=== PATIENT | male | born 1985 | race Caucasian/White ===

== ENCOUNTER 2016-06-08 21:50 | Inpatient (IN) | payer SELFPAY ==
[~2016-06-08] VITALS: Ht 190.5 cm; Wt 150.3 kg
--- OUTSIDE RECORDS SUMMARY | 2016-06-08 21:53 | External Medical Summary Rpt ---
Author Author [employer] Organization [employer] Address Unknown Phone Unavailable Purpose Continuity of Care Document - through 2016
--- OUTSIDE RECORDS SUMMARY | 2016-06-08 21:53 | External Medical Summary Rpt ---
Demographics Preferred Language Swedish Marital Status Unknown Hindu Affiliation Unknown Race Unknown Ethnic Group Unknown Author Author , Organization [employer] Address Unknown Phone Unavailable Purpose Continuity of Care Document - through 2016 Immunization No patient found.
--- OUTSIDE RECORDS SUMMARY | 2016-06-08 21:53 | External Medical Summary Rpt ---
Demographics Preferred Language Pap[place]inean Marital Status Unknown Shinto Affiliation Unknown Race Unknown Ethnic Group Unknown Author Author , Organization [employer] Address Unknown Phone Unavailable Purpose Continuity of Care Document - through 2016
--- OUTSIDE RECORDS SUMMARY | 2016-06-08 21:53 | External Medical Summary Rpt ---
Demographics Preferred Language Tajik Marital Status Unknown Episcopal Affiliation Unknown Race Unknown Ethnic Group Unknown Author Author , Organization [employer] Address Unknown Phone Unavailable Purpose Continuity of Care Document - through 2016 Immunization No patient found.
--- OUTSIDE RECORDS SUMMARY | 2016-06-08 21:53 | External Medical Summary Rpt ---
Demographics Preferred Language Gibraltarian Marital Status Unknown Hinduism Affiliation Unknown Race Unknown Ethnic Group Unknown Author Author , Organization [employer] Address Unknown Phone Unavailable Purpose Continuity of Care Document - through 2016
[2016-06-08 21:55] VITALS: BP 147/91
[2016-06-08] MEDS ORDERED: METFORMIN1000 MG PO (22:03)
--- OUTSIDE RECORDS SUMMARY | 2016-06-08 22:14 | External Medical Summary Rpt ---
Demographics Preferred Language Unknown Marital Status Unknown Mandaeism Affiliation Unknown Race Unknown Ethnic Group Unknown Author Author [employer], [employer] Organization [employer] Address Unknown Phone Unavailable
--- OUTSIDE RECORDS SUMMARY | 2016-06-08 22:14 | External Medical Summary Rpt ---
Demographics Preferred Language Cambodian Marital Status Unknown Samaritan Affiliation Unknown Race Unknown Ethnic Group Unknown Author Author , Organization [employer] Address Unknown Phone Unavailable Purpose Continuity of Care Document - through 2016
--- OUTSIDE RECORDS SUMMARY | 2016-06-08 22:14 | External Medical Summary Rpt ---
Demographics Preferred Language Danish Marital Status Unknown Restoration Affiliation Unknown Race Unknown Ethnic Group Unknown Author Author , Organization [employer] Address Unknown Phone Unavailable Purpose Continuity of Care Document - through 2016
--- OUTSIDE RECORDS SUMMARY | 2016-06-08 22:14 | External Medical Summary Rpt ---
Demographics Preferred Language Sri Lankan Marital Status Unknown Confucianism Affiliation Unknown Race Unknown Ethnic Group Unknown Author Author , Organization [employer] Address Unknown Phone Unavailable Purpose Continuity of Care Document - through 2016 Immunization No patient found.
--- OUTSIDE RECORDS SUMMARY | 2016-06-08 22:14 | External Medical Summary Rpt ---
Demographics Preferred Language Georgian Marital Status Unknown Latter-Day Affiliation Unknown Race Unknown Ethnic Group Unknown Author Author , Organization [employer] Address Unknown Phone Unavailable Purpose Continuity of Care Document - through 2016 Immunization No patient found.
--- OUTSIDE RECORDS SUMMARY | 2016-06-08 22:14 | External Medical Summary Rpt ---
Demographics Preferred Language Unknown Marital Status Unknown Congregational Affiliation Unknown Race Unknown Ethnic Group Unknown Author Author [employer] Green, [employer] Organization [employer] Address Unknown Phone Unavailable
[2016-06-08 22:37] LABS: HEMOGLOBIN 16.8 g/dL (14.1-18.0); LYMPH % 5.2 % (10-50)
--- NOTE | 2016-06-08 22:40 | Emergency Room Report ---
History of Present Illness Time Seen by 2213 Presenting Problem in Triage Pt arrived:Walked Presenting Problem:PT RPTS HE THINKS HE GOT BIT BY A SNAKE APPROXIMATELY 3 HOURS AGO. PT RPTS HE WAS RIDING ON A 4 LOPEZ AND WAS WEARING JEANS WHEN HE FELT SOMETHING BITE HIS RIGHT INNER THIGH. PT RPTS CHILLS/DIZZINESS/NAUSEA SINCE ALLEGED BITE. PT WITH RED/HARD/WARM AREA TO RIGHT INNER THIGH. NO PUNCTURE ARORA NOTED TO RED AREA. 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 N Clinical Suspician of Infection? Y Mental Status: 1 - Regular (Normal Baseline) Sepsis Risk:Severe Sepsis Risk Have you (or family members/close friends) recently traveled outside the [place]? N If Yes, where/when: Have you had exposure to infectious disease within the past month? N TB? Other? Specify: Source patient, RN notes reviewed, family, old records Exam Limitations no limitations Comment wm who about 1900 was bitten by unk source and has swelling and reddness - rt thigh - and feels achey - no other rash and no distal from bite finding - he has hx of diabetes mellitus - Cardiac Chest Pain Chest pain indicative of cardiac No Timing/Duration this evening Severity moderate ALLERGIES Coded Allergies: No Known Allergies (06/08/16) Home Medications Reported Medications METFORMIN HCL (Metformin) 1,000 MG PO BID History Medical History General CAD? No Angina: No [place]: No Hypertension? No Hyperlipidemia? No CHF? No DVT? No PE? No COPD? No Asthma? No Anemia? No GERD? No Gastric ulcers? No GI Bleed? No Hernia? No Thyroid Problems? No Hypothyroidism? No CVA? No Seizures? No Diabetes? Yes Insulin Dependent: No Insulin Pump: No Home FSBS? No Renal Insuffiency? No End Stage Renal Disease? No UTI? No Stones? No BPH? No GB Disease: No Nephritic Syndrome? No Asplenia? No Hepatitis? No Sickle Cell Disease? No Arthritis? No Migraines? No Cataracts? No Glaucoma? No MRSA? No HIV? No TB? No Anxiety? No Depression? No Cancer? No More? No Immunization Hx DT/Tetanus 1-4 Years Ago Surgical Hx Previous Surgery?N Social History Smoking Hx Smoker: Never Smoker Tobacco: No Alcohol Alcohol: Yes Drugs none Review of Systems All Other Systems Reviewed and Negative Constitutional see HPI, fever, other Eyes denies drainage ENT denies: ear pain, epistaxis, throat pain. Respiratory denies cough, denies shortness of breath, denies wheezing Cardiovascular denies chest pain, denies syncope Gastrointestinal denies abdominal pain, denies diarrhea, denies vomiting Genitourinary denies: dysuria, frequency, hesitancy, hematuria. Musculoskeletal denies back pain, denies joint pain, denies joint swelling, denies neck pain Skin see HPI, rash Psychiatric/Neurological denies headache, denies seizure Physical Exam Vital Signs Vital Signs Date Time Temp Pulse Resp B/P Pulse O2 O2 Flow FiO2 Ox Delivery Rate 06/08 2338 100.6 121 18 125/59 94 06/08 2229 111 20 131/72 95 06/08 2155 103.1 136 24 147/91 97 - WBC >12,000 or <4,000 or 10% bands? 2 or more SIRS Criteria Met? B/P:125/59 MAP:109 Creatinine >2.0? UA output<0.5ml/kg/hr for 2 hrs? Platelet count >100,000? Lactate >2.0mmol/1? INR >1.2 or PTT > than 60 sec? Evidence of Organ Dysfunction? Provider documented clinical suspician of infection? Y Sepsis Criteria Count: 3 Sepsis Risk: Severe Sepsis Risk General Appearance no apparent distress Eye Exam - bilateral eye PERRL, bilateral eye EOMI Ear, Nose, Throat normal ENT inspection Neck supple Respiratory Status No: respiratory distress. 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 No Results/Orders Laboratory Tests 06/08/162219: Lactic Acid 2.1 H, ESR 9 05/03/17 2220: Sodium 136, Potassium 4.5, Chloride 100, Carbon Dioxide 26, BUN 12, Creatinine 1.2, Estimated Creat Clear 204 H, Estimated GFR (MDRD) 70, Glucose 165 H, Calcium 9.2, Total Bilirubin 0.5, AST 16, ALT 35, Alkaline Phosphatase 83, Total Protein 7.7, Albumin 3.8, Globulin 3.9 H, Albumin/Globulin Ratio 1.0 L, WBC 20.1 *H, RBC 5.52, Hgb 16.8, Hct 49.8, MCV 90.2, RDW 13.9, Plt Count 250, MPV 6.7 L, Gran % 89.4 H, Gran # 18.0 H, Total Counted 100, Lymphocytes % 5.2 L, Monocytes % 4.4, Eosinophils % 0.7, Basophils % 0.2, Neutrophils 91 H, Lymphocytes (Manual) 5 L, Lymphocytes # 1.0, Monocytes (Manual) 3, Monocytes # 0.9, Eosinophils # 0.2, Basophils # 0.1, Basophils # (Manual) 1, Platelet Estimate NORMAL, Anisocytosis 1+, PUBS MCHC 33.7, MCH 30.4, Urine Color YELLOW, Urine Appearance CLEAR, Urine pH 6.0, Ur Specific [place] 1.025, Urine Protein TRACE H, Urine Ketones NEGATIVE, Urine Blood 3+ H, Urine Nitrate NEGATIVE, Urine Bilirubin NEGATIVE, Urine Urobilinogen 0.2, Ur Leukocyte Esterase NEGATIVE , Urine RBC 5-10, Urine WBC 3-5, Ur Squamous Epith Cells 3-5, Urine Bacteria 1+, Urine Mucus 1+, Urine Glucose NEGATIVE Current Medication Orders Sig/Miguel Start time Last Medication Dose Route Stop Time Status Admin Acetaminophen 1,000 MG ONCE ONE 06/08 2345 DC 06/08 PO 06/08 2346 2337 Acetaminophen 0 .STK-MED ONE 06/08 2336 DC PO Sodium Chloride 10 ML PRN PRN 06/08 223 AC IV 06/09 2229 Orders Procedure Date/time Status Decision to admit 06/08 2358 Active LACTIC ACID FOLLOW UP 06/08 225 Active SED RATE 06/08 224 Complete C-REACTIVE PROTEIN 06/08 224 Complete IV SALINE LOCK 06/08 2229 Active CULTURE, BLOOD 06/08 2229 Active URINALYSIS/COMPLETE 06/08 2229 Complete LACTIC ACID 06/08 2229 Complete CBC WITH AUTO DIFF 06/08 2229 Complete CHEM 12 PROFILE 06/08 2229 Complete DIFFERENTIAL-WBC 06/09 2219 Complete Departure Departure Time of Disposition 0005 Disposition Still a Patient Clinical Impression Primary Impression: Cellulitis Qualifiers: Site of cellulitis: extremity Site of cellulitis of extremity: lower extremity Laterality: right Qualified Code: L03.115 - Cellulitis of right lower limb Condition STABLE Referrals Marco Delcid MD discussed with dr delcid ED Critical Care Critical Care No at 0026
[2016-06-08 22:44] LABS: URINE BILIRUBIN - DIPSTICK NEGATIVE (NEG); URINE BLOOD 3+ (NEG)
[2016-06-08 23:17] LABS: NEUTROPHILS 91 % (42-76)
[2016-06-09] VITALS (7 sets, daily range): BP systolic 120–166; BP diastolic 70–86
--- OUTSIDE RECORDS SUMMARY | 2016-06-09 00:04 | External Medical Summary Rpt ---
Demographics Preferred Language Belarusian Marital Status Unknown Mormon Affiliation Unknown Race Unknown Ethnic Group Unknown Author Author , Organization [employer] Address Unknown Phone Unavailable Purpose Continuity of Care Document - through 2016 Immunization No patient found.
--- OUTSIDE RECORDS SUMMARY | 2016-06-09 00:04 | External Medical Summary Rpt ---
Demographics Preferred Language Chinese Marital Status Unknown Yarsani Affiliation Unknown Race Unknown Ethnic Group Unknown Author Author , Organization [employer] Address Unknown Phone Unavailable Purpose Continuity of Care Document - through 2016 Immunization No patient found.
[2016-06-09 07:34] LABS: LYMPH # 0.8 K/mm3 (0.7-4.5); LYMPH % 5.6 % (10-50)
--- NOTE | 2016-06-09 08:38 | HISTORY AND PHYSICAL REPORT ---
History and Physical ([facility]) Date of admission: 06/09/16 Chief complaint: Bite on leg with pain and swelling History: History of Present Illness: Mr. Randle is a 30-year-old male who was on his 4 robert yesterday getting ready to mow his yard when he felt something bite him on the RIGHT leg. He is unsure what it was but felt like it was a snake due to 2 bite marcus that he saw very close together. He states this occurred at approximately 7 PM and over the next few hours he began to get nauseated, he broke out into cold sweats, he began aching all over, and he started vomiting. He presented to the emergency room around 10 PM last night. He was admitted with cellulitis and started on vancomycin. He states he has vomited off and on all night. He still has been running a fever and having cold chills. He is very nauseated. He states the pain at the bite site is actually getting worse. His medical history is significant only for type 1 diabetes and HTN. He states he takes nothing for his diabetes and controls it with diet. He does not have a family physician. Past Medical History: Medical History: CAD? No Angina: No [place]: No Hypertension? Yes Hyperlipidemia? No CHF? No DVT? No PE? No COPD? No Asthma? No Anemia? No GERD? No Gastric ulcers? No GI Bleed? No Hernia? No Thyroid Problems? No Hypothyroidism? No CVA? No Seizures? No Diabetes? Yes Insulin Dependent: No Insulin Pump: No Home FSBS? No Renal Insuffiency? No UTI? No Stones? No BPH? No GB Disease: No Nephritic Syndrome? No Asplenia? No Hepatitis? No Sickle Cell Disease? No Arthritis? No Migraines? No Cataracts? No Glaucoma? No MRSA? No HIV? No TB? No Anxiety? No Depression? No Cancer? No More? No Additional hx: 1. Right eye injury - partially blind Surgical history: Previous Surgery?N Medications: Reported Medications No Known Home Medications Allergies: Coded Allergies: No Known Allergies (06/08/16) Family History: Family history: Postive for: CAD, DM, HTN, hyperlipidemia, stroke. Social History: Smoking Hx Tobacco: No Smoker: Never Smoker Type: N/A Packs/day: N/A Are you exposed to second hand No Alcohol: Alcohol: Yes How much do you drink Less Than One Drink A Day For how long 1-2 Years When was your last drink 12-24 Hours Ago Comment PT DRINKS EVERY FEW DAYS FOR PAIN Hx of Drug Use: Drug Use? No Review of Systems: Constitutional Positive for: chills, fatigue, lethargy, malaise, weak. ENT No: nasal congestion, sore throat. Cardiovascular No: chest pain, edema, palpitations. Respiratory Positive for: shortness of air. No: productive cough (sputum), wheezing. GI Positive for: abdominal pain, nausea, vomitting. No: diarrhea. (male) No: frequency, hematuria. Neurological Positive for: dizziness, headache, light headed, weakness. Musculoskeletal Positive for: joint pain (all over), myalgias. Physical Exam: Vital signs: 1ST Vital Signs Result Date Time Pulse Ox 97 06/08 2154 B/P 147/91 06/08 2154 Temp 103.1 06/08 2154 Pulse 136 06/08 2154 Resp 20 06/08 2154 O2 Delivery ROOM AIR 06/09 0136 Exam: General appearance: alert, awake, does not appear to feel well Eyes: right pupil fixed and dilated from previous injury, left pupil normal ENT: mucous membranes moist, nose normal, pharynx normal, tympanic membranes normal Neck: non-tender, full range of motion, supple Cardiovascular: regular sinus rhythm, tachycardic Respiratory: clear to auscultation ABD: non-distended, normal bowel sounds, no rebound, soft, no guarding, diffusely ttp Extremities: no peripheral edema Musculoskeletal: equal muscle strength, motor intact, sensation intact Skin: there is an area of irregular erythema on the right thigh surrounding two bite marcus, the area is hot to the touch and tender, there is no discharge 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, normal mood/affect, oriented, speech clear Lab data: Labs: Laboratory Tests 06/09/16 0625: Creatine Kinase 173, CK-MB (CK-2) Rel Index 0.3, CK and CKMB Interp 0.5, Troponin I < 0.02, WBC 14.1 H, RBC 5.01, Hgb 15.0, Hct 44.9, MCV 89.6, RDW 14.0 , Plt Count 218, MPV 7.0 L, Gran % 89.1 H, Gran # 12.6 H, Lymphocytes % 5.6 L, Monocytes % 5.0, Eosinophils % 0.1, Basophils % 0.2, Lymphocytes # 0.8, Monocytes # 0.7, Eosinophils # 0.0, Basophils # 0.0, PUBS MCHC 33.5, MCH 30.0 06/09/16 0235: Lactic Acid 1.9 06/09/16 0000: Hemoglobin A1c 7.5 H 06/08/16 2220: Lactic Acid 2.1 H, ESR 9 06/08/16 2220: Sodium 136, Potassium 4.5, Chloride 100, Carbon Dioxide 26, BUN 12, Creatinine 1.2, Estimated Creat Clear 204 H, Estimated GFR (MDRD) 70, Glucose 165 H, Calcium 9.2, Total Bilirubin 0.5, AST 16, ALT 35, Alkaline Phosphatase 83, Total Protein 7.7, Albumin 3.8, Globulin 3.9 H, Albumin/Globulin Ratio 1.0 L, WBC 20.1 *H, RBC 5.52, Hgb 16.8, Hct 49.8, MCV 90.2, RDW 13.9, Plt Count 250, MPV 6.7 L, Gran % 89.4 H, Gran # 18.0 H, Total Counted 100, Lymphocytes % 5.2 L, Monocytes % 4.4, Eosinophils % 0.7, Basophils % 0.2, Neutrophils 91 H, Lymphocytes (Manual) 5 L, Lymphocytes # 1.0, Monocytes (Manual) 3, Monocytes # 0.9, Eosinophils # 0.2, Basophils # 0.1, Basophils # (Manual) 1, Platelet Estimate NORMAL, Anisocytosis 1+, PUBS MCHC 33.7, MCH 30.4, Urine Color YELLOW, Urine Appearance CLEAR, Urine pH 6.0, Ur Specific [place] 1.025, Urine Protein TRACE H, Urine Ketones NEGATIVE, Urine Blood 3+ H, Urine Nitrate NEGATIVE, Urine Bilirubin NEGATIVE, Urine Urobilinogen 0.2, Ur Leukocyte Esterase NEGATIVE , Urine RBC 5-10, Urine WBC 3-5, Ur Squamous Epith Cells 3-5, Urine Bacteria 1+, Urine Mucus 1+, Urine Glucose NEGATIVE Microbiology 06/09 2219 BLOOD: Anaerobic Blood Culture - RECD 06/09 2219 BLOOD: Aerobic Blood Culture - RECD 06/09 2219 BLOOD: Anaerobic Blood Culture - RECD 05/03 2220 BLOOD: Aerobic Blood Culture - RECD Diagnosis(es): 1. Cellulitis 2. Bite 3. Type 1 diabetes 4. Vomiting 5. Myalgia Plan: The patient has been started on IV Vancomycin, tylenol, and zofran along with IVF's. Will start on motrin as well. Will await blood cx's. His WBC and fever have improved. (Amarilys Benton) Diagnosis(es): 1. Cellulitis 2. Bite 3. Vomiting 4. 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 (Marco Delcid MD) at 0838 at 0903
--- NOTE | 2016-06-09 09:53 | PHARMACY CLINIC NOTE ---
Patient Demographics Patient Demographics Admission date: 06/09/16 Date: 06/09/16 Time: 951 Allergies Coded Allergies: No Known Allergies (06/08/16) HEIGHT- FT: 6 IN: 3.00 K.311 VTE General Information Labs: Laboratory Tests 06/09 06/08 0625 2220 Hematology Hgb (14.1 - 18.0 g/dL) 15.0 16.8 Hct (42.0 - 52.0 %) 44.9 49.8 Plt Count (142 - 424 K/mm3) 218 250 Disclaimer The following section includes nursing documentation that has been pulled in for pharmacy review. Patient's VTE score: 1 Patient's VTE Risk: VERY LOW RISK Clinical trial participant? No VTE prophylaxis NQF [id number] VTE prophylaxis ordered? Yes Type of prophylaxis/treatment: CATRACHITO at 0952
--- NOTE | 2016-06-09 12:52 | CONSULT NOTE ---
Pharmacokinetic Consult Date of consult: 06/09/16 Time of consult: 1250 Referring provider: DR. GASPAR Reason for consult: VANCOMYCIN DOSING Allergies: Coded Allergies: No Known Allergies (06/08/16) Home Medications: Reported Medications No Known Home Medications Height (feet): 6 Height (inches): 3.00 Medical History: CAD? No Angina: No [place]: No Hypertension? Yes Hyperlipidemia? No CHF? No DVT? No PE? No COPD? No Asthma? No Anemia? No GERD? No Gastric ulcers? No GI Bleed? No Hernia? No Thyroid Problems? No Hypothyroidism? No CVA? No Seizures? No Diabetes? Yes Insulin Dependent: No Insulin Pump: No Home FSBS? No Renal Insuffiency? No UTI? No Stones? No BPH? No GB Disease: No Nephritic Syndrome? No Asplenia? No Hepatitis? No Sickle Cell Disease? No Arthritis? No Migraines? No Cataracts? No Glaucoma? No MRSA? No HIV? No TB? No Anxiety? No Depression? No Cancer? No More? No Additional hx: 1. Right eye injury - partially blind Labs: Laboratory Tests 06/09/16 0625: Creatine Kinase 173, CK-MB (CK-2) Rel Index 0.3, CK and CKMB Interp 0.5, Troponin I < 0.02, WBC 14.1 H, RBC 5.01, Hgb 15.0, Hct 44.9, MCV 89.6, RDW 14.0 , Plt Count 218, MPV 7.0 L, Gran % 89.1 H, Gran # 12.6 H, Lymphocytes % 5.6 L, Monocytes % 5.0, Eosinophils % 0.1, Basophils % 0.2, Lymphocytes # 0.8, Monocytes # 0.7, Eosinophils # 0.0, Basophils # 0.0, PUBS MCHC 33.5, MCH 30.0 06/09/16 0235: Lactic Acid 1.9 06/09/16 0000: Hemoglobin A1c 7.5 H 06/08/160: Lactic Acid 2.1 H, ESR 9 06/08/16 2220: Sodium 136, Potassium 4.5, Chloride 100, Carbon Dioxide 26, BUN 12, Creatinine 1.2, Estimated Creat Clear 204 H, Estimated GFR (MDRD) 70, Glucose 165 H, Calcium 9.2, Total Bilirubin 0.5, AST 16, ALT 35, Alkaline Phosphatase 83, Total Protein 7.7, Albumin 3.8, Globulin 3.9 H, Albumin/Globulin Ratio 1.0 L, WBC 20.1 *H, RBC 5.52, Hgb 16.8, Hct 49.8, MCV 90.2, RDW 13.9, Plt Count 250, MPV 6.7 L, Gran % 89.4 H, Gran # 18.0 H, Total Counted 100, Lymphocytes % 5.2 L, Monocytes % 4.4, Eosinophils % 0.7, Basophils % 0.2, Neutrophils 91 H, Lymphocytes (Manual) 5 L, Lymphocytes # 1.0, Monocytes (Manual) 3, Monocytes # 0.9, Eosinophils # 0.2, Basophils # 0.1, Basophils # (Manual) 1, Platelet Estimate NORMAL, Anisocytosis 1+, PUBS MCHC 33.7, MCH 30.4, Urine Color YELLOW, Urine Appearance CLEAR, Urine pH 6.0, Ur Specific [place] 1.025, Urine Protein TRACE H, Urine Ketones NEGATIVE, Urine Blood 3+ H, Urine Nitrate NEGATIVE, Urine Bilirubin NEGATIVE, Urine Urobilinogen 0.2, Ur Leukocyte Esterase NEGATIVE , Urine RBC 5-10, Urine WBC 3-5, Ur Squamous Epith Cells 3-5, Urine Bacteria 1+, Urine Mucus 1+, Urine Glucose NEGATIVE Microbiology 06/09 2219 BLOOD: Anaerobic Blood Culture - RECD 06/09 2219 BLOOD: Aerobic Blood Culture - RECD 06/09 2219 BLOOD: Anaerobic Blood Culture - RECD 06/09 2219 BLOOD: Aerobic Blood Culture - RECD Problem List: 1. Cellulitis Plan: BASED ON PATIENT FACTORS, RECOMMEND VANCOMYCIN 2500 MG IV ONCE, FOLLOWED BY VANCOMYCIN 2 GM IV Q8H. PHARMACY WILL FOLLOW DAILY AND ADJUST APPROPRIATE. at 1251
[2016-06-10 04:03] VITALS: BP 149/67
[2016-06-10 06:47] LABS: HEMOGLOBIN 15.1 g/dL (14.1-18.0); LYMPH # 1.6 K/mm3 (0.7-4.5); LYMPH % 15.4 % (10-50)
[2016-06-10 08:10] VITALS: BP 141/72
--- NOTE | 2016-06-10 08:11 | ACUTE CARE PROGRESS NOTE (QUA) ---
Progress Notes Subjective Date 06/10/16 Time 0730 Note Patient feels better; aches and chills stopped yesterday; cellulitis on thigh is not as hot but reddness does not seem any better. eating OK but has developed diarrhea; no nausea or vomiting; voiding qs; ambulating without pain WBC's are normal today Objective Findings Laboratory Tests 06/10/16 0620: Sodium 139, Potassium 4.4, Chloride 103, Carbon Dioxide 28, BUN 10, Creatinine 1.1, Estimated Creat Clear 205 H, Estimated GFR (MDRD) 78, Glucose 206 H, Calcium 8.8, WBC 10.4, RBC 4.94, Hgb 15.1, Hct 44.4, MCV 89.8, RDW 14.1, Plt Count 191, MPV 6.7 L, Gran % 73.7, Gran # 7.7, Lymphocytes % 15.4, Monocytes % 9.0, Eosinophils % 1.6, Basophils % 0.3, Lymphocytes # 1.6, Monocytes # 0.9, Eosinophils # 0.2, Basophils # 0.0, PUBS MCHC 34.0, MCH 30.5 Vital Signs Date Time Temp Pulse Resp B/P Pulse O2 O2 Flow FiO2 Ox Delivery Rate 06/10 0403 99.4 91 18 149/67 99 ROOM AIR 06/09 2130 98.2 87 18 158/70 96 06/09 1944 98.2 87 18 158/70 96 ROOM AIR 06/09 1630 99.9 98 18 166/86 96 ROOM AIR 06/09 0913 99.2 110 20 147/70 99 / 0830 98.6 99 20 142/82 98 ROOM AIR Current Medications Acetaminophen 0 .STK-MED ONE PO (DC) Ondansetron HCl 0 .STK-MED ONE .ROUTE (DC) Ibuprofen 0 .STK-MED ONE PO (DC) Acetaminophen 0 .STK-MED ONE PO (DC) Vancomycin HCl 2,000 MG Q8H IV Sodium Chloride 250 ML Vancomycin HCl 2,000 MG Q12 IV (DC) Sodium Chloride 250 ML Ibuprofen 600 MG Q6HP PRN PO Sodium Chloride 10 ML PRN PRN IV Acetaminophen 650 MG Q4HP PRN PO Ondansetron HCl 4 MG Q6HP PRN IV Oxycodone/Acetaminophen 1 EACH Q6HP PRN PO (DC) Sodium Chloride 1,000 ML .[id number] IV Miscellaneous Information 1 EACH CONSULT PHARMACY * (DC) Sodium Chloride 10 ML PRN PRN IV (DC) 06/09 1500 06/09 2300 06/10 0700 Intake Total 494 480 Output Total Balance 494 480 Intake, Oral 494 480 Output, Stool Last VS-Temp:99.4 B/P:149/67 Pulse:91 Resp:18 SaO2:99 ROOM AIR Last weight lbs:331 oz:6 K.311 Method:Bed Scales Exam General appearance: alert, active, no acute distress, well-developed, well- nourished Cardiovascular: regular rate & rhythm Respiratory: clear to auscultation (bilat anterior and posterior) ABD: non-distended, soft, no tenderness, no guarding Extremities: no peripheral edema, pedal pulses (present) Skin: right inner thigh with circular erythema with center; not as TTP; no drainage Assessment/Plan Problem List 1. Cellulitis 2. Bite 3. Vomiting 4. 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 Cellulitis 2. Bite 3. Vomiting 4. 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 (Marco Delcid MD) at 0811 at 0845
[2016-06-10 10:04] VITALS: BP 141/72
--- NOTE | 2016-06-10 10:25 | CONSULT NOTE ---
Pharmacokinetic Consult Date of consult: 06/10/16 Time of consult: 1024 Referring provider: DR. GASPAR Reason for consult: VANCOMYCIN TROUGH LEVEL Allergies: Coded Allergies: No Known Allergies (06/08/16) Home Medications: Reported Medications No Known Home Medications Height (feet): 6 Height (inches): 3.00 Medical History: CAD? No Angina: No ND: No Hypertension? Yes Hyperlipidemia? No CHF? No DVT? No PE? No COPD? No Asthma? No Anemia? No GERD? No Gastric ulcers? No GI Bleed? No Hernia? No Thyroid Problems? No Hypothyroidism? No CVA? No Seizures? No Diabetes? Yes Insulin Dependent: No Insulin Pump: No Home FSBS? No Renal Insuffiency? No UTI? No Stones? No BPH? No GB Disease: No Nephritic Syndrome? No Asplenia? No Hepatitis? No Sickle Cell Disease? No Arthritis? No Migraines? No Cataracts? No Glaucoma? No MRSA? No HIV? No TB? No Anxiety? No Depression? No Cancer? No More? No Additional hx: 1. Right eye injury - partially blind Labs: Laboratory Tests 06/10/16 0830: Vancomycin Trough 12.5 H 06/10/16 0620: Sodium 139, Potassium 4.4, Chloride 103, Carbon Dioxide 28, BUN 10, Creatinine 1.1, Estimated Creat Clear 205 H, Estimated GFR (MDRD) 78, Glucose 206 H, Calcium 8.8, WBC 10.4, RBC 4.94, Hgb 15.1, Hct 44.4, MCV 89.8, RDW 14.1, Plt Count 191, MPV 6.7 L, Gran % 73.7, Gran # 7.7, Lymphocytes % 15.4, Monocytes % 9.0, Eosinophils % 1.6, Basophils % 0.3, Lymphocytes # 1.6, Monocytes # 0.9, Eosinophils # 0.2, Basophils # 0.0, PUBS MCHC 34.0, MCH 30.5 Problem List: 1. Cellulitis Plan: BASED ON VANCOMYCIN TROUGH LEVEL, RECOMMEND CONTINUING VANCOMYCIN 2 GM IV Q8H. PHARMACY WILL CONTINUE TO MONITOR DAILY AND ADJUST APPROPRIATE. at 4050
[2016-06-10 15:59] VITALS: BP 132/78
[2016-06-10 19:23] VITALS: BP 138/69
[2016-06-10 20:41] VITALS: BP 138/69
[2016-06-11 03:43] VITALS: BP 147/88
--- NOTE | 2016-06-15 15:16 | DISCHARGE SUMMARY STANDARD ---
Discharge Summary ([facility]CA2) Date of admission: 06/09/16 Date of discharge: 06/11/16 Problem List: 1. Cellulitis 2. Bite 3. Vomiting 4. Myalgia 5. Diabetes 1.5, managed as type 2 History of present illness: Mr. Randle is a 30-year-old male who was on his 4 robert getting ready to mow his yard when he felt something bite him on the RIGHT leg. He was unsure what it was but felt like it was a snake due to 2 bite marcus that he saw very close together. He stated this occurred at approximately 7 PM and over the next few hours he began to get nauseated, he broke out into cold sweats, he began aching all over, and he started vomiting. He presented to the emergency room around 10 PM last night. He was admitted with cellulitis and started on vancomycin. Exam on admission: General appearance: alert, awake, does not appear to feel well Eyes: right pupil fixed and dilated from previous injury, left pupil normal ENT: mucous membranes moist, nose normal, pharynx normal, tympanic membranes normal Neck: non-tender, full range of motion, supple Cardiovascular: regular sinus rhythm, tachycardic Respiratory: clear to auscultation ABD: non-distended, normal bowel sounds, no rebound, soft, no guarding, diffusely ttp Extremities: no peripheral edema Musculoskeletal: equal muscle strength, motor intact, sensation intact Skin: there is an area of irregular erythema on the right thigh surrounding two bite marcus, the area is hot to the touch and tender, there is no discharge Neuro: 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 He still had been running a fever and having cold chills. He was very nauseated. He stated the pain at the bite site was actually getting worse. His medical history was significant only for diabetes and HTN. He stated he took nothing for his diabetes and controlled it with diet. He was continued on IV vancomycin, zofran, and IVF's. He was given motrin and tylenol as well for fever. His WBC and his fever improved and he began feeling better. According to the nursing notes, he walked out of his room on 06/11/16 and wanted his IV discontinued. He stated he wanted to leave and go to another hospital. The warehouse freight handler was informed and went in to speak with the patient. He began yelling at the warehouse freight handler. He disconnected his IV independently. He was given AMA papers to fill out but ripped them up, refused to sign them, and walked out. Disposition: Patient left AMA at 1540
--- NOTE | 2016-06-15 15:16 | DISCHARGE SUMMARY STANDARD ---
Discharge Summary (FCA2) Date of admission: 06/09/16 Date of discharge: 06/11/16 Problem List: 1. Cellulitis 2. Bite 3. Vomiting 4. Myalgia 5. Diabetes 1.5, managed as type 2 History of present illness: Mr. Randle is a 30-year-old male who was on his 4 robert getting ready to mow his yard when he felt something bite him on the RIGHT leg. He was unsure what it was but felt like it was a snake due to 2 bite marcus that he saw very close together. He stated this occurred at approximately 7 PM and over the next few hours he began to get nauseated, he broke out into cold sweats, he began aching all over, and he started vomiting. He presented to the emergency room around 10 PM last night. He was admitted with cellulitis and started on vancomycin. Exam on admission: General appearance: alert, awake, does not appear to feel well Eyes: right pupil fixed and dilated from previous injury, left pupil normal ENT: mucous membranes moist, nose normal, pharynx normal, tympanic membranes normal Neck: non-tender, full range of motion, supple Cardiovascular: regular sinus rhythm, tachycardic Respiratory: clear to auscultation ABD: non-distended, normal bowel sounds, no rebound, soft, no guarding, diffusely ttp Extremities: no peripheral edema Musculoskeletal: equal muscle strength, motor intact, sensation intact Skin: there is an area of irregular erythema on the right thigh surrounding two bite marcus, the area is hot to the touch and tender, there is no discharge 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 He still had been running a fever and having cold chills. He was very nauseated. He stated the pain at the bite site was actually getting worse. His medical history was significant only for diabetes and HTN. He stated he took nothing for his diabetes and controlled it with diet. He was continued on IV vancomycin, zofran, and IVF's. He was given motrin and tylenol as well for fever. His WBC and his fever improved and he began feeling better. According to the nursing notes, he walked out of his room on 06/11/16 and wanted his IV discontinued. He stated he wanted to leave and go to another hospital. The warehouse operations associate was informed and went in to speak with the patient. He began yelling at the warehouse operations associate. He disconnected his IV independently. He was given AMA papers to fill out but ripped them up, refused to sign them, and walked out. Disposition: Patient left AMA at [id number]
== END 2016-06-11 05:07 | disposition left against medical advice (07) | DRG 603 ==
LOC: ER 21:50 → 2ND 23:59
PROVIDERS: Emergency Medicine
DX: L03.115 Cellulitis of right lower limb (principal); S71.151A Open bite, right thigh, initial encounter; E11.9 Type 2 diabetes mellitus without complications
CPT/HCPCS: J2405; J3370